=== PATIENT | male | born 1980 | race Two or more races ===

== ENCOUNTER → 2018-02-10 | Outpatient (CLI) | payer OTHER ==
[~2018-02-10] VITALS: Ht 167.6 cm; Wt 65.8 kg
== END | disposition home or self-care (01) ==
LOC: OFIC 805 13:05
DX: R07.0 Pain in throat (principal); R05 Cough; A63.0 Anogenital (venereal) warts

== ENCOUNTER 2018-03-02 14:51 | Outpatient (CLI) | payer OTHER ==
[~2018-03-02] VITALS: Ht 152.4 cm; Wt 65.8 kg
== END 2018-03-02 15:10 | disposition home or self-care (01) ==
LOC: OFIC 805 14:51
DX: J39.2 Other diseases of pharynx (principal); R07.0 Pain in throat

== ENCOUNTER 2018-05-04 12:00 | Outpatient (CLI) | payer OTHER ==
[~2018-05-04] VITALS: Ht 152.4 cm; Wt 65.8 kg
== END 2018-05-04 12:20 | disposition home or self-care (01) ==
LOC: OFIC 805 12:00
DX: J32.0 Chronic maxillary sinusitis (principal); K21.9 Gastro-esophageal reflux disease without esophagitis

== ENCOUNTER 2019-03-24 08:21 | Outpatient (CLI) | payer OTHER | END 2019-03-24 08:31 | disposition home or self-care (01) | LOC: SONOGRAMA 08:21 | DX: N46.8 Other male infertility (principal); N40.0 Benign prostatic hyperplasia without lower urinary tract symptoms ==